=== PATIENT | female | born 1980 | race Caucasian/White ===

== ENCOUNTER 2016-12-26 20:10 | Emergency (ER) | payer SELFPAY ==
[2016-12-26 20:30] VITALS: BP 123/77
[2016-12-26] MEDS ORDERED: ORPHENADRINE CITRATE 60 MG/2ML IV ONE (21:16)
[2016-12-26] MEDS ORDERED: KETOROLAC TROMETHAMINE 30 MG/1ML VIAL IVP ONE (21:16)
--- NOTE | 2016-12-26 21:24 | ED Physician Documentation ---
General Adult - HISTORIAN Historian: patient, paramedics - [facility] Stated Complaint: chest pain Chief Complaint: General Adult Additional Information: Pain from vaginal area to abd, chest, up to neck. Vaginal pain attributed to IUD and is not new. CP began at 1400 today while she was washing dishes. Also hot and sweaty at that time. Non productive cough since 1230. Arrived per EMS. Last normal bowel movement just prior to ambulance transport. Timing: still present - ROS CONST: sweating (see above) CVS/RESP: denies: shortness of breath - PAST HX Past History: other (dysfunctional uterine bleeding, IUD placement- No improvement i nbleeding) Allergies/Adverse Reactions: Allergies Allergy/AdvReac Type Severity Reaction Status Date / Time aspirin Allergy Verified 12/26/16 20:30 iodine Allergy Verified 12/26/16 20:30 Iodine and Iodide Containing Allergy Verified 12/26/16 20:30 Produc Sulfa (Sulfonamide Allergy Verified 12/26/16 20:30 Antibiotics) sulfamethoxazole Allergy Verified 12/26/16 20:30 [From Bactrim] trimethoprim [From Bactrim] Allergy Verified 12/26/16 20:30 Home Medications: Ambulatory Orders Medication Instructions Recorded Clonazepam 1 mg PO TID PRN 07/01/16 - SOCIAL HX Smoking History: non-smoker Alcohol Use: none Drug Use: none - FAMILY HX Family History: No - VITAL SIGNS Vital Signs: Vital Signs Temp Pulse Resp BP Pulse Ox 98.6 F 113 H 22 123/77 96 12/26/16 20:26 12/26/16 20:26 12/26/16 20:26 12/26/16 20:26 12/26/16 20:26 - REVIEWED ASSESSMENTS Nursing Assessment Reviewed: Yes Vitals Reviewed: Yes Progress - Progress Progress: Chest -two views CLINICAL HISTORY: Central chest pain radiating posteriorly. Nonproductive cough. FINDINGS: Examination of the chest in PA and lateral views with no prior film for comparison demonstrates the lungs to be clear. Cardiovascular and mediastinal silhouettes are within normal limits. The bony thorax is intact. IMPRESSION: Negative chest. Electronically signed on December 26, 2016 11:02:26 PM CDT by: Bon Yuen ED Results Lab/Radiology - Orders Orders: ED Orders Category Date Time Status Ketorolac Tromethamine [Toradol] Med 12/26/16 21:16 Once 30 mg IVP NOW ONE Orphenadrine Citrate [Norflex] Med 12/26/16 21:16 Once 60 mg IV NOW ONE General Adult Physical Exam - PHYSICAL EXAM GENERAL APPEARANCE: mild distress EENT: eye inspection normal, ENT inspection normal, pharynx normal, MARTIN, TM's nml, other (no pain with palpation facial sinus areas) NECK: normal inspection, supple RESPIRATORY: no resp distress, breath sounds normal, other (palpation chest reproduces her pain) CVS: reg rate & rhythm, heart sounds normal ABDOMEN: soft, normal bowel sounds, tenderness (left lower quadrant, mild) RECTAL: deferred BACK: normal inspection, no CVA tenderness SKIN: warm/dry (on arrival (sweaty in over warm exam room)) EXTREMITIES: no evidence of injury NEURO: CN's nml as tested, motor nml, sensation nml Discharge Clincal Impression: Chest wall pain Referrals: Primary Doctor,No [Primary Care Provider] - 2 Days Additional Instructions: Gentle heat to the sore areas of your chest. Apply pressure to the sore areas if you know you are about to cough or sneeze. Follow up with your provider as needed. You can also take 1000 mg tylenol every 8 hours if needed for pain. Home Medications: Ambulatory Orders Clonazepam 1 mg PO TID PRN 07/01/16 Condition: Good Disposition: 01 HOME, SELF-CARE Decision to Admit: NO Decision Time: 23:17
--- NOTE | 2016-12-27 00:18 | Diagnostic Imaging Report ---
RYANNE LOWRY~ [facility] [address] [facility] [address] [address] ~ ~ ~ ~ Report Submission Date: December 26, 2016 11:02:26 PM CDT Patient ~ Study Name: GEOVANNI ARANGO ~ Date: December 26, 2016 10:47:13 PM CDT ~ Modality Type: CR Gender: F ~ Description: CHEST : 76 ~ Institution: [facility] Physician: RYANNE LOWRY ~ ~ ~ ~ Chest -two views CLINICAL HISTORY: ~ Central chest pain radiating posteriorly. ~Nonproductive cough. FINDINGS: ~ Examination of the chest in PA and lateral views with no prior film for comparison demonstrates the lungs to be clear. ~Cardiovascular and mediastinal silhouettes are within normal limits. ~The bony thorax is intact. IMPRESSION: ~ Negative chest. ~ Electronically signed on December 26, 2016 11:02:26 PM CDT by: Bon LUIS
== END 2016-12-26 23:45 | disposition home or self-care (01) ==
LOC: ED 20:10
DX: R07.89 Other chest pain (principal)
CPT/HCPCS: 71020; 81025; 93005; J1885; J2360; 96374; 96375; 99283

== ENCOUNTER 2016-12-31 20:33 | Emergency (ER) | payer SELFPAY ==
[2016-12-31] MEDS ORDERED: HYDROcodone /APAP 10/325 1 EACH TABLET PO ONE (21:16)
[2016-12-31] MEDS ORDERED: SULFAMETHOXAZOLE/TRIMETHOPRIM 1 EACH TABLET PO ONE (21:17)
[2016-12-31] MEDS ORDERED: HYDROcodone /APAP 5/325 1 EACH TABLET PO ONE (21:19)
[2016-12-31 21:37] LABS: eGFR (African) > 60; eGFR (Non-African) > 60
[2016-12-31 21:44] LABS: BASOPHILS % 0.7 (0.0-1.5); EOSINOPHILS % 2.9 % (0.0-6.8); MEAN CORPUSCULAR HEMOGLOBIN 25.4 pg (28.0-34.0); MEAN CORPUSCULAR VOLUME 82.6 fl (80.0-100.0); MONOCYTES % 4.4 % (0.0-11.0); NEUTROPHILS # 5.5 # k/uL (1.4-7.7)
--- NOTE | 2016-12-31 22:36 | ED Physician Documentation ---
Abdominal Pain - HISTORIAN Historian: patient - HPI Chief Complaint: Abdominal Pain Additonal Information: genl abd pain onset 3 hrs ago had loose normal brown bm. pain bilat low abd ext into vag area. menses irreg dt iud Onset: hours (3) Duration: waxing, waning Timing: still present Context: denies: out of country travel, bad food Severity: moderate Quality: cramping, sharp Associated Symptoms: none - ROS CONST: no problems GI/: none CVS/RESP: none NEURO/PSYCH: none - SOCIAL HX Smoking History: non-smoker Alcohol Use: none Drug Use: none - FAMILY HX Family History: no significant history - PAST HX Past History: other (dys uterine bleeding-persists after iud placed jun 2016) Surgeries/Procedures: other (ganglion cyst) Home Medications: Ambulatory Orders Medication Instructions Recorded Clonazepam 1 mg PO TID PRN 07/01/16 Albendazole [Albenza] 400 mg PO 1T #1 tablet 12/31/16 Allergies/Adverse Reactions: Allergies Allergy/AdvReac Type Severity Reaction Status Date / Time aspirin Allergy Verified 12/31/16 20:50 iodine Allergy Verified 12/31/16 20:50 Iodine and Iodide Containing Allergy Verified 12/31/16 20:50 Produc Sulfa (Sulfonamide Allergy Verified 12/31/16 20:50 Antibiotics) sulfamethoxazole Allergy Verified 12/31/16 20:50 [From Bactrim] trimethoprim [From Bactrim] Allergy Verified 12/31/16 20:50 - VITAL SIGNS Vital Signs: Vital Signs Temp Pulse Resp BP Pulse Ox 98.1 F 123 H 20 160/96 94 12/31/16 20:56 12/31/16 20:56 12/31/16 20:56 12/31/16 20:56 12/31/16 20:56 - REVIEWED ASSESSMENTS Nursing Assessment Reviewed: Yes Vitals Reviewed: Yes ED Results Lab/Radiology - Lab Results Lab Results: Lab Results 12/31/16 12/31/16 21:20 21:20 WBC 9.30 K/ul K/ul (4.00-12.00) RBC 5.01 M/ul M/ul (3.90-5.20) Hgb 12.7 g/dL g/dL (12.0-16.0) Hct 41.4 % % (34.5-46.5) MCV 82.6 fl fl (80.0-100.0) MCH 25.4 pg L pg (28.0-34.0) MCHC 30.8 g/dL g/dL (30.0-36.0) RDW 14.7 % H % (11.3-14.3) Plt Count 323 K/mm3 K/mm3 (130-400) Neut % (Auto) 59.2 % % (39.0-79.0) Lymph % (Auto) 31.0 % % (16.0-50.0) [place] % (Auto) 4.4 % % (0.0-11.0) Eos % (Auto) 2.9 % % (0.0-6.8) Baso % (Auto) 0.7 (0.0-1.5) Neut # 5.5 # k/uL # k/uL (1.4-7.7) Lymph # 2.9 # k/uL # k/uL (0.6-4.0) [place] # 0.4 # k/uL # k/uL (0.0-0.9) Eos # 0.3 # k/uL # k/uL (0.0-0.6) Baso # 0.1 # k/uL # k/uL (0.0-0.5) Reactive Lymphs % 1.8 % % (0.0-5.0) Reactive Lymphs # 0.2 # k/uL # k/uL (0.0-0.8) Sodium 139 mmol/L mmol/L (136-145) Potassium 4.2 mmol/L mmol/L (3.5-5.0) Chloride 96 mmol/L L mmol/L (98-110) Carbon Dioxide 29 mmol/L mmol/L (20-32) BUN 13 mg/dL mg/dL (10-26) Creatinine 0.7 mg/dL mg/dL (0.4-1.5) Estimated Creat Clear 220 Est GFR ( Amer) > 60 (60 - ) Est GFR (Non-Af Amer) > 60 (60 - ) Glucose 310 mg/dL H mg/dL (70-99) Calcium 10.3 mg/dL mg/dL (8.5-10.5) Total Bilirubin 0.5 mg/dL mg/dL (0.2-1.2) AST 39 U/L U/L (0-41) ALT 57 U/L H U/L (0-45) Alkaline Phosphatase 110 U/L U/L (46-116) Total Protein 8.5 g/dL g/dL (6.0-8.5) Albumin 4.8 g/dL g/dL (3.0-5.5) Amylase 30 U/L U/L (20-104) - Orders Orders: ED Orders Category Date Time Status ABD SERIES PA CHEST [RAD] Stat Exams 12/31/16 Ordered AMYLASE Routine Lab 12/31/16 21:20 Completed CBC/PLATELET/DIFF Routine Lab 12/31/16 21:20 Completed CMP Routine Lab 12/31/16 21:20 Completed URINALYSIS Routine Lab 12/31/16 Ordered HYDROcodone /APAP 10/325 [[place] 10/325] Med 12/31/16 21:16 Discontinued 1 each PO NOW ONE HYDROcodone /APAP 5/325 [[place] 5/325] Med 12/31/16 21:19 Discontinued 2 each PO NOW ONE Sulfamethoxazole/Trimethoprim [Bactrim Ds] Med 12/31/16 21:17 Discontinued 3 each PO NOW ONE Abdominal Pain Physical Exam - Physical Exam General Appearance: moderate distress EENT: eye inspection normal NECK: normal inspection RESPIRATORY: no resp distress, breath sounds normal CVS: reg rate & rhythm, heart sounds normal ABDOMEN: soft, tenderness (generalized throughout abdomen) SKIN: warm/dry, normal color. No: cyanosis, diaphoresis, jaundice EXTREMITIES: non-tender, normal range of motion NEURO: oriented X3, motor nml, sensation nml, mood/affect nml Vital Signs: Vital Signs Temp Pulse Resp BP Pulse Ox 98.1 F 123 H 20 160/96 94 12/31/16 20:56 12/31/16 20:56 12/31/16 20:56 12/31/16 20:56 12/31/16 20:56 Discharge Clincal Impression: HYPERGLYCEMIA, Pinworms, probable diabetes mellitus Prescriptions: Albendazole [Albenza] 400 mg PO 1T #1 tablet Referrals: Primary Doctor,No [Primary Care Provider] - 2 Days Home Medications: Ambulatory Orders Clonazepam 1 mg PO TID PRN 07/01/16 Albendazole [Albenza] 400 mg PO 1T #1 tablet 12/31/16 Comments: home meds for pinworms see pcp very very soon for diabetes eval and tx Condition: Fair Disposition: 01 HOME, SELF-CARE Decision to Admit: NO Decision Time: 22:35
[2016-12-31 22:49] VITALS: BP 134/79
[2017-01-01 05:51] LABS: OCCULT BLOOD,URINE 2+ (NEGATIVE); UROBILINOGEN URINE 0.2 Eu (0.2-1.0)
--- NOTE | 2017-01-01 06:49 | Diagnostic Imaging Report ---
ABDELRAHMAN MUNOZ [facility] [address] [facility] [address] [place], [place]. [address] Report Submission Date: December 31, 2016 9:49:18 PM CDT Patient Study Name: GEOVANNI ARANGO Date: December 31, 2016 9:29:35 PM CDT Modality Type: CR Gender: F Description: ABDOMEN : 76 Institution: [facility] Physician: ABDELRAHMAN MUNOZ Abdominal series and chest History: Low abdominal pain Findings: The lungs are clear. Heart size is normal. Upright and supine abdominal radiographs reveal an intrauterine device and normal bowel gas pattern. Obesity is observed. There is no evidence of bowel obstruction or free air. Bilateral pelvic calcifications likely represent phleboliths but some are too small to characterize. Impression: 1. Obesity and intrauterine device. 2. Normal bowel gas pattern. 3. Bilateral pelvic calcifications, likely phleboliths. Electronically signed on December 31, 2016 9:49:18 PM CDT by: Lang LUIS
== END 2016-12-31 22:47 | disposition home or self-care (01) ==
LOC: ED 20:33
DX: R73.9 Hyperglycemia, unspecified (principal); B80 Enterobiasis
CPT/HCPCS: 74022; 80053; 81002; 82150; 85025; 99283; S1016